=== PATIENT | male | born 1960 | race Caucasian/White ===

== ENCOUNTER 2017-03-21 09:30 | Emergency (ER) | payer OTHER ==
--- NOTE | 2017-03-25 08:56 | ER ---
ADMIT: 03/21/2017 RM/LOC: ER [facility] MR#: [id number] [address] [id number] [place] [id number] Emergency Room Report SEX: M AGE: 56 : 1960 DATE: 03/21/2017 TIME: 0930 hours. Please refer to my T-sheet for complete H and P. Briefly, the patient is a 56-year-old who is up here from [place] showing [place] out at the [place]. He had drove all night, had not had any sleep. He was out in the heat when he started feeling short of breath, started feeling very anxious. No chest pain. No radiating pain. He has a known history of cardiac disease. He has had stents, the last was about a year ago. He says this did not feel anything like his heart problems, he just felt short of breath and weak. It resolved when he went in the air conditioning and watched the show, but he came in because he was worried about it and wanted it evaluated. No recent cough, no chest pain with it. PHYSICAL EXAMINATION: VITAL SIGNS: Stable. HEENT: Grossly normal. LUNGS: Clear. HEART: Regular. ABDOMEN: Soft. EXTREMITIES: Trace edema. EMERGENCY DEPARTMENT COURSE: EKG was sinus rhythm, rate 61. He had a lateral, slightly biphasic T waves. No ST-segment elevation. CBC normal. Chemistries normal. Troponin negative. We obtained his EKG is from [place], compared them, there was a slight difference. I went and explained this to him. I offered to keep him in the hospital overnight and trend his enzymes. He said he would rather not, he would rather go back to the show as he is feeling fine. He said if things would worsen, he would return. I told him there is a risk of this, ADMIT: 03/21/2017 RM/LOC: ER [facility] MR#: [id number] [facility] [address] [place] [id number] [place] [id number] Emergency Room Report SEX: M AGE: 56 : 1960 he understood that. He said he would follow up with his primary when he gets back to [place]. He thinks it is all because he has not had any sleep and he has been very worn out and in the heat. He does take a blood thinner also. He was ready for discharge. ASSESSMENT: 1. Acute dyspnea, resolved. 2. Anxiety. PLAN: Rest. Catch-up on sleep. Staying in the AC. Return if worse. Drink plenty of fluids. I want him to see his primary when he gets back to [place] or come back here if he changes his mind about evaluation. Raghavendra Dodson MD/ salena JOB #: [id number] CC: Raghavendra Dodson MD, Attending Physician UNKNOWN, Family Physician
== END 2017-03-21 11:24 | disposition home or self-care (01) ==
LOC: ER 09:30
DX: R06.00 Dyspnea, unspecified (principal); F41.9 Anxiety disorder, unspecified; I25.2 Old myocardial infarction; I10 Essential (primary) hypertension; E78.5 Hyperlipidemia, unspecified; Z79.82 Long term (current) use of aspirin; Z79.899 Other long term (current) drug therapy